=== PATIENT | male | born 1980 | race Asian ===

== ENCOUNTER 2016-10-21 13:00 | Emergency (ER) | payer SELFPAY ==
[2016-10-21 13:25] VITALS: BP 139/87
--- NOTE | 2016-10-21 14:42 | UC ---
General HPI - HPI Summary HPI Summary: 5 DAYS AGO WAS WORKING IN HIS LAB AT [employer] WHEN A LAB MATE ACCIDENTALLY ADDED BLEACH TO TRIZOL. IT CREATED A NOXIOUS GAS (ACCORDING TO POISON CONTROL PROBABLY CHLORINE GAS) THAT PT WAS EXPOSED TO FOR ABOUT 5 MINUTES BEFORE THE VESSEL WAS MOVED TO THE FUMEHOOD. PT THEN RETURNED TO THE SAME LAB AND CONTINUED TO WORK FOR ABOUT 30 MINUTES. THEN TOOK A 20 MINUTE BREAK BEFORE AGAIN RETURNING TO WORK FOR THE NEXT HOUR OR SO. THE NEXT DAY PT FELT VERY SLEEPY, HAD A FRAGOSO, DIZZINESS, PHOTOPHOBIA AND FELT TREMULOUS. SYMPTOMS HAVE SLOWLY IMPROVED BUT ARE NOT COMPLETELY RESOLVED AND PT STILL FEELS QUITE SLEEPY. HAS A HAND TREMOR WITH CERTAIN ACTIVITIES. - History of Current Complaint Chief Complaint: UCGeneralIllness Stated Complaint: CHEMICAL EXPOSURE Time Seen by Provider: 10/21/16 13:58 Hx Obtained From: Patient Onset/Duration: Sudden Onset, Lasting Days, Still Present Timing: Constant Onset Severity: Moderate Current Severity: Mild Pain Intensity: 0 Associated Signs & Symptoms: Positive: Dizziness, Headache. Negative: Confusion , Cough, Nausea, Palpitations, SOB, Vomiting, Wheezing, Weakness - Allergy/Home Medications Allergies/Adverse Reactions: Allergies Allergy/AdvReac Type Severity Reaction Status Date / Time pain killers Allergy Rash Uncoded 10/21/16 13:17 Home Medications: Home Medications NK [No Home Medications Reported] 10/21/16 [History Confirmed 10/21/16] PMH/Surg Hx/FS Hx/Imm Hx Previously Healthy: Yes - Surgical History Surgical History: Yes Surgery Procedure, Year, and Place: remove a dysplagia on skull, knee sx on rt - Family History Family History: PT NOT SURE OF HIS FAMILY HISTORY - Social History Alcohol Use: Weekly Substance Use Type: None Smoking Status (MU): Never Smoked Tobacco Review of Systems Constitutional: Fatigue Skin: Negative Eyes: Photophobia ENT: Negative Respiratory: Negative Cardiovascular: Negative Gastrointestinal: Negative Neurological: Headache, Other - DIZZY All Other Systems Reviewed And Are Negative: Yes Physical Exam Triage Information Reviewed: Yes Appearance: Well-Appearing, No Pain Distress, Well-Nourished Vital Signs: Initial Vital Signs Temp 98.7 F 10/21/16 13:18 Pulse 82 10/21/16 13:18 Resp 18 10/21/16 13:18 BP 139/87 10/21/16 13:18 Pulse Ox 97 10/21/16 13:18 Vital Signs Reviewed: Yes Eyes: Positive: Conjunctiva Clear ENT: Positive: Hearing grossly normal, Pharynx normal, TMs normal Neck: Positive: Supple, Nontender, No Lymphadenopathy Respiratory Exam: Normal Cardiovascular Exam: Normal Abdomen Description: Positive: Soft Musculoskeletal: Positive: No Edema Neurological: Positive: Alert, Muscle Tone Normal Psychological: Positive: Age Appropriate Behavior Skin: Negative: rashes Re-Evaluation - Re-Evaluation First Eval Re-Evaluation Time: 14:30 - FEELS MORE AWAKE AND ALERT WITH THE OXYGEN Change: Improved Second Eval Re-Evaluation Time: 15:05 - FELS MUCH BETTER. READY FOR D/C Change: Improved Course/Dx - Course Course Of Treatment: POISON CONTROL CONTACTED. LIKELY CHLORINE GAS EXPOSURE. RECOMMEND EKG, CBC, BMP AND FREASH AIR. PT FEELS BETTER AFTER OXYGEN THERAPY. ADVISED TO REST, HYDRATE AND GET MUCH FRESH AIR POSSIBLE. SEEK FOLLOW-UP IF SYMPTOMS DO NOT CONTINUE TO IMPROVE. - Differential Dx - Multi-Symptom Provider Diagnoses: TOXIC GAS INHALATION Discharge - Discharge Plan Condition: Stable Disposition: HOME Patient Education Materials: Smoke Inhalation (ED) Referrals: [facility] JOSE Leach [Medical Doctor] - If Needed Additional Instructions: YOUR SYMPTOMS ARE LIKELY DUE TO PROLONGED EXPOSURE TO CHLORINE GAS AND SHOULD CONTINUE TO IMPROVE. STAY WELL HYDRATED AND GET ENOUGH REST AND FRESH AIR. WE HAVE CHECKED SOME LABS TODAY AND WILL CALL YOU IF ANY ABNORMAL RESULTS. EKG WAS UNREMARKABLE. SEEK FOLLOW-UP IF YOU ARE NOT CONTINUING TO IMPROVE EXPECTED OVER THE NEXT WEEK OR SO.
[2016-10-21 19:28] LABS: Hematocrit 49 % (42-52); Hemoglobin 16.1 g/dl (14.0-18.0); Mean Corpuscular HGB Conc 33 g/dl (31-36); Mean Corpuscular Hemoglobin 28 pg (27-31); Mean Corpuscular Volume 85 fL (80-94); Mean Platelet Volume 10 um3 (7.4-10.4); Red Blood Count 5.74 10^6/ul (4.0-5.4); Red Cell Distribution Width 14 % (10.5-15); White Blood Count 7.1 10^3/ul (3.5-10.8)
[2016-10-21 19:52] LABS: BUN/Creatinine Ratio 14.6 (8-20); Calcium 9.6 mg/dL (8.6-10.3); EGFR African American 106.3 (>60); EGFR Non-African American 82.7 (>60); Potassium 4.4 mmol/L (3.5-5.0)
== END 2016-10-21 15:15 | disposition home or self-care (01) ==
LOC: UCEAST 13:00
DX: T59.891A Toxic effect of other specified gases, fumes and vapors, accidental (unintentional), initial encounter (principal); R42 Dizziness and giddiness; R51 Headache; R53.83 Other fatigue
CPT/HCPCS: 36415; 80048; 85027; 93005; 99202; G0463

== ENCOUNTER 2018-03-14 11:26 | Emergency (ER) | payer OTHER ==
[2018-03-14 11:40] VITALS: BP 134/97
--- NOTE | 2018-03-14 12:11 | UC ---
General HPI - HPI Summary HPI Summary: [facility] is [facility] documenting for attending Carl De La Torre MD. Pt is a 37 y/o M c/o LE itching lasting for ~3 days. Most bites are localized in the R lower leg. He reports a severity of 4/10, per assessment. Assoc. Sx: LE itching, swelling and redness secondary to insect bites. Denies: fever, chills. Patient reports being out in the yard at night with friends ~3 days ago when he received a lot of mosquito bites. I, Dr. De La Torre, personally performed the services described in this documentation as scribed in my presence and it is both accurate and complete. - History of Current Complaint Chief Complaint: UCLowerExtremity Stated Complaint: BUG BITES Time Seen by Provider: 03/14/18 11:45 Hx Obtained From: Patient Onset/Duration: Gradual Onset, Lasting Days Timing: Constant Onset Severity: Mild Current Severity: Mild Pain Intensity: 4 Associated Signs & Symptoms: Positive: Other - POS: LE - redness, swelling NEG: Chills. Negative: Fever - Allergy/Home Medications Allergies/Adverse Reactions: Allergies Allergy/AdvReac Type Severity Reaction Status Date / Time aspirin Allergy Swelling Verified 03/14/18 11:42 Of Face,Lips,& Throat ibuprofen Allergy Swelling Verified 03/14/18 11:43 Of Face,Lips,& Throat NSAIDS (Non-Steroidal Allergy Swelling Verified 03/14/18 11:43 Anti-Inflamma Of Face,Lips,& Throat pain killers Allergy Swelling Uncoded 03/14/18 11:42 Of Face,Lips,& Throat paracetamol Allergy Swelling Uncoded 03/14/18 11:42 Of Face,Lips,& Throat PMH/Surg Hx/FS Hx/Imm Hx Endocrine History: Other Other Endocrine History: NEG: DM Cardiovascular History: Other Other Cardiovascular History: NEG: CAD, HTN - Surgical History Surgical History: Yes Surgery Procedure, Year, and Place: remove a dysplagia on skull, knee sx on rt - Family History Known Family History: Positive: Other Family History: PT NOT SURE OF HIS FAMILY HISTORY - Social History Occupation: Employed Full-time Lives: Dormitory/Roommates Alcohol Use: Occasionally Substance Use Type: None Smoking Status (MU): Never Smoked Tobacco Review of Systems Constitutional: Other - NEG: Fever, chills. Skin: Other - POS: LE Insect bites, redness, swelling, itching. All Other Systems Reviewed And Are Negative: Yes Physical Exam - Summary Physical Exam Summary: VITAL SIGNS: Reviewed. GENERAL: Patient is a well-developed and nourished Male who is lying comfortable in the stretcher. Patient is not in any acute respiratory distress. HEAD AND FACE: Normocephalic EYES: PERRLA, EOMI x 2. EARS: Hearing grossly intact. MOUTH: Oropharynx within normal limits. NECK: Supple, trachea is midline, no adenopathy, no JVD, no carotid bruit. CHEST: Symmetric, no tenderness at palpation LUNGS: Clear to auscultation bilaterally. No wheezing or crackles. CVS: Regular rate and rhythm, S1 and S2 present, no murmurs or gallops appreciated. ABDOMEN: Soft, non-tender. Bowel sounds are normal. No abdominal abnormal pulsations. EXTREMITIES: Full ROM in all major joints, no edema, no cyanosis or clubbing. RLE - insect bites: erythema, swelling, warm. NEURO: Alert and oriented x 3. No acute neurological deficits. Speech is normal and follows Triage Information Reviewed: Yes Vital Signs: Initial Vital Signs Temp 98.5 F 03/14/18 11:37 Pulse 77 03/14/18 11:37 Resp 18 03/14/18 11:37 BP 134/97 03/14/18 11:37 Pulse Ox 98 03/14/18 11:37 Vital Signs Reviewed: Yes Course/Dx - Course Course Of Treatment: This patient is a 37-year-old male who presents to the urgent care with a chief complaint of having insect bites;(+) erythema and swelling in the right lower extremity. He since that the patient has cellulitis. Patient was discharged home with a prescription for Bactrim. Patient is hemodynamically stable, alert and oriented 3. He was instructed to return to the urgent care or go to the emergency department if the symptoms worsen. He understands and agrees. - Differential Dx - Multi-Symptom Provider Diagnoses: cellulitis Discharge - Sign-Out/Discharge Documenting (check all that apply): Patient Departure All imaging exams completed and their final reports reviewed: Yes - Discharge Plan Condition: Stable Disposition: HOME Prescriptions: Cephalexin CAP* [Keflex CAP*] 500 mg PO QID #40 cap Patient Education Materials: Cellulitis (ED), Cellulitis (DC), Insect Bite or Sting (ED) Referrals: [facility] [place] [facility] [Outside] Additional Instructions: FOLLOW UP WITH YOUR PRIMARY CARE PROVIDER WITHIN ONE WEEK FOR HIGH BLOOD PRESSURE NOTED TODAY. RETURN TO URGENT CARE FOR ANY WORSENING OR NEW SYMPTOMS. - Billing Disposition and Condition Condition: STABLE Disposition: Home - Attestation Statements Document Initiated by Gary: Yes Documenting Scribe: Claude Bernardo Provider For Whom Gary is Documenting (Include Credential): Carl De La Torre MD. Scribe Attestation: Claude Thacker scribed for Carl De La Torre MD. on 03/16/18 at 0726. Scribe Documentation Reviewed: Yes Provider Attestation: The documentation as recorded by the Claude trimble accurately reflects the service I personally performed and the decisions made by Carl hurtado MD.
--- NOTE | 2018-03-15 10:56 | UC ---
Discharge - Sign-Out/Discharge Documenting (check all that apply): Post-Discharge Follow Up All imaging exams completed and their final reports reviewed: No Studies - Discharge Plan Condition: Stable Disposition: HOME Prescriptions: Cephalexin CAP* [Keflex CAP*] 500 mg PO QID #40 cap Patient Education Materials: Cellulitis (ED), Cellulitis (DC), Insect Bite or Sting (ED) Referrals: [facility] [place] [facility] [Outside] Additional Instructions: FOLLOW UP WITH YOUR PRIMARY CARE PROVIDER WITHIN ONE WEEK FOR HIGH BLOOD PRESSURE NOTED TODAY. RETURN TO URGENT CARE FOR ANY WORSENING OR NEW SYMPTOMS. - Billing Disposition and Condition Condition: STABLE Disposition: Home
== END 2018-03-14 12:08 | disposition home or self-care (01) ==
LOC: UCEAST 11:26
DX: L03.115 Cellulitis of right lower limb (principal); Z88.6 Allergy status to analgesic agent
CPT/HCPCS: 99212; G0463